=== PATIENT | female | born 1965 | race Caucasian/White ===

== ENCOUNTER 2018-05-30 11:35 | Emergency (ER) | payer SELFPAY ==
[~2018-05-30] VITALS: Ht 154.9 cm; Wt 72.6 kg
[2018-05-30 12:30] VITALS: BP 131/85
[2018-05-30] MEDS ORDERED: KETOROLAC TROMETH 60MG/2ML VIAL IM ONE (13:15)
== END 2018-05-30 13:13 | disposition home or self-care (01) ==
LOC: ER 11:37
DX: S02.2XXA Fracture of nasal bones, initial encounter for closed fracture (principal); W22.8XXA Striking against or struck by other objects, initial encounter; Y93.89 Activity, other specified; Y99.8 Other external cause status; Y92.89 Other specified places as the place of occurrence of the external cause
CPT/HCPCS: 70160; 96372; 99283; J1885